=== PATIENT | male | born 1995 | race Caucasian/White ===

== ENCOUNTER 2017-12-21 13:01 | Emergency (ER) | payer OTHER ==
--- NOTE | 2018-02-04 12:46 | EKG ---
Test Reason : Blood Pressure : / mmHG Vent. Rate : 060 BPM Atrial Rate : 060 BPM P-R Int : 130 ms QRS Dur : 084 ms QT Int : 402 ms P-R-T Axes : 045 050 049 degrees QTc Int : 402 ms Normal sinus rhythm Normal ECG Confirmed by CYRUS STEWART MD ([id number]), market editor LUIS E ESCALANTE ([id number]) on 02/04/2018 12:45:26 PM Referred By: Confirmed By:CYRUS STEWART MD
== END 2017-12-21 15:15 | disposition home or self-care (01) ==
LOC: ERS 13:01
DX: G44.209 Tension-type headache, unspecified, not intractable; F17.200 Nicotine dependence, unspecified, uncomplicated; F41.9 Anxiety disorder, unspecified; G47.00 Insomnia, unspecified
CPT/HCPCS: 93005